=== PATIENT | male | born 1955 | race Caucasian/White ===

== ENCOUNTER → 2021-12-26 | Outpatient (CLI) | payer MEDICAID ==
[~2021-12-26] VITALS: Ht 182.9 cm; Wt 149.7 kg
[~2021-12-26] MED LIST: ASPI-556 PO; ATOR40TA71 PO; FENO145T26 PO; HYDR25TA PO; LOSA100T58 PO; REGADENOSON 0.4 MG/5 ML PF SYG IVP SCH
== END | disposition home or self-care (01) ==
LOC: SHCH 08:18
PROVIDERS: ATTEND Internal Medicine Cardiovascular Disease
DX: I25.10 Atherosclerotic heart disease of native coronary artery without angina pectoris (principal)
CPT/HCPCS: 78452; 93017; 96374; A9500 ×2; J2785